=== PATIENT | female | born 1970 | race American Indian/Alaskan Native ===

== ENCOUNTER 2021-08-04 10:39 | Outpatient (CLI) | payer SELFPAY | END 2021-08-04 10:40 | disposition home or self-care (01) | LOC: LABHHL 10:39 | PROVIDERS: ATTEND Surgery | DX: N63.0 Unspecified lump in unspecified breast (principal) | CPT/HCPCS: 88305 ==

== ENCOUNTER 2021-08-11 10:10 | Outpatient (CLI) | payer SELFPAY | END 2021-08-11 10:11 | disposition home or self-care (01) | LOC: LABHHL 10:10 | PROVIDERS: ATTEND Surgery | DX: N63.32 Unspecified lump in axillary tail of the left breast (principal) | CPT/HCPCS: 88305 ==